=== PATIENT | male | born 1930 | race Hispanic/Latino ===

== ENCOUNTER 2017-06-15 21:01 | Emergency (ER) | payer OTHER, MEDICARE ==
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
[2017-06-15 22:56] VITALS: BP 160/80; BMI 26.6
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
[2017-06-16 00:41] VITALS: PULSE 69; RESP 18; TEMP 98.9; O2SAT 99
--- NOTE | 2017-06-16 08:33 | RAD ---
HISTORY: COMPARISON: 05/03/2017. TECHNIQUE: Chest PA and lateral FINDINGS: LINES AND TUBES: None. LUNG AND PLEURA: The lungs are well inflated and clear. HEART AND MEDIASTINUM: The heart is not enlarged. The hilar and mediastinal contours are within normal limits. SKELETAL STRUCTURES: The bony structures are within normal limits for the patient's age. VISUALIZED UPPER ABDOMEN: Normal. OTHER FINDINGS: None. IMPRESSION: No acute findings.
== END 2017-06-16 00:41 | disposition home or self-care (01) ==
LOC: ED 21:01
DX: S09.90XA Unspecified injury of head, initial encounter (principal); V49.40XA Driver injured in collision with unspecified motor vehicles in traffic accident, initial encounter; I25.10 Atherosclerotic heart disease of native coronary artery without angina pectoris

== ENCOUNTER 2017-12-19 06:11 | Observation (INO) | payer MEDICARE ==
--- NOTE | 2017-12-19 07:10 | CP.PCM.HP ---
History of Present Illness - History of Present Illness History of Present Illness: 87 M failed conservative management elected for a right total knee arthroplasty Hx [place] with stents 2002. No Hx of blood clots, stroke, bleeding disorders NKA Present on Admission - Present on Admission Any Indicators Present on Admission: No History of DVT/PE: No History of Uncontrolled Diabetes: No Review of Systems - Review of Systems All systems: reviewed and no additional remarkable complaints except (R knee pain, swelling) Past Patient History - Past Social History Smoking Status: Never Smoked - CARDIAC Hx Cardiac Disorders: Yes Hx Heart Attack: Yes Hx Hypercholesterolemia: Yes Hx Hypertension: Yes Hx Pacemaker: No - PULMONARY Hx Respiratory Disorders: No - NEUROLOGICAL Hx Paralysis: No - HEENT Hx Cataracts: Yes - RENAL Hx Chronic Kidney Disease: No - ENDOCRINE/METABOLIC Hx Endocrine Disorders: No - HEMATOLOGICAL/ONCOLOGICAL Hx Blood Disorders: No Hx Blood Transfusions: No - INTEGUMENTARY Hx Dermatological Problems: No - MUSCULOSKELETAL/RHEUMATOLOGICAL Hx Musculoskeletal Disorders: No - GASTROINTESTINAL Hx Gastrointestinal Disorders: No - GENITOURINARY/GYNECOLOGICAL Hx Genitourinary Disorders: No Hx Reproductive Disorders: No - PSYCHIATRIC Hx Substance Use: Yes - SURGICAL HISTORY Hx Surgeries: No - ANESTHESIA Hx Anesthesia Reactions: No Hx Malignant Hyperthermia: No Meds Allergies/Adverse Reactions: Allergies Allergy/AdvReac Type Severity Reaction Status Date / Time No Known Allergies Allergy Verified 06/15/17 21:09 Physical Exam - Constitutional Appears: Well, No Acute Distress - Head Exam Head Exam: ATRAUMATIC, NORMAL INSPECTION, NORMOCEPHALIC - Neck Exam Neck exam: Positive for: Full Rom, Normal Inspection - Respiratory Exam Respiratory Exam: NORMAL BREATHING PATTERN - Cardiovascular Exam Cardiovascular Exam: RRR - Expanded Lower Extremities Exam Right Knee exam: effusion, tenderness (Thigh and Calf are soft and nontender. NVI distally) - Neurological Exam Neurological exam: Alert, Oriented x3 - Psychiatric Exam Psychiatric exam: Normal Affect, Normal Mood - Skin Skin Exam: Dry, Intact, Normal Color, Warm Assessment & Plan (1) Osteoarthritis of right knee Assessment and Plan: NPO T&S OR for a right total knee arthroplasty Patient medically optimized for surgery. Risks benefits and alternatives discussed and patient verbalzies understanding and would like to proceed. Status: Acute (2) Hypertension Status: Chronic (3) High cholesterol Status: Chronic
[2017-12-19] MEDS ORDERED: Pantoprazole 40 mg EC Tab PO PRN (07:18)
[2017-12-19] MEDS ORDERED: Bupivacaine 0.5% Inj(30mL) ONE (07:22)
[2017-12-19] MEDS ORDERED: Propofol 10 mg/ml Inj (20 ML) ONE (07:33)
[2017-12-19] MEDS ORDERED: Morphine 1 mg/ml preservative-free Inj(Duramorph) ONE (07:34)
[2017-12-19] MEDS ORDERED: ePHEDrine 50 mg/ml Inj ONE (07:52)
[2017-12-19] MEDS ORDERED: Bupivacaine Liposomal Inj 20 ml ONE (08:38)
[2017-12-19] MEDS ORDERED: Sodium Chloride 0.9% 40 ML IV ONE (08:38)
[2017-12-19] MEDS ORDERED: Vancomycin 1 g Inj ONE (08:38)
[2017-12-19] MEDS ORDERED: Multivitamin With Minerals Tab PO SCH (10:00)
[2017-12-19] MEDS ORDERED: Morphine 2 mg/ml ISec IVP PRN (10:42)
--- NOTE | 2017-12-19 10:44 | PCM.SURG1 ---
Surgeon's Initial Post Op Note - Surgeon's Notes Surgeon: Charo Holden MD Animation Artist: Alcon Florence PA-C Type of Anesthesia: General LMA, Spinal Anesthesia Administered By: Dr. Perez Pre-Operative Diagnosis: right knee osteoarthritis Operative Findings: see full note Post-Operative Diagnosis: same Operation Performed: right total knee arthroplasty Specimen/Specimens Removed: none Estimated Blood Loss: EBL {In ML}: 200 Blood Products Given: N/A Drains Used: Hemovac, Wound Vac Post-Op Condition: Fair Date of Surgery/Procedure: 12/19/17 Time of Surgery/Procedure: 10:42
[2017-12-19] MEDS ORDERED: Sodium Chloride 0.9% 1,000 ML IV SCH (10:45)
--- NOTE | 2017-12-19 10:58 | OP ---
PROCEDURE DATE: 12/19/2017 PREOPERATIVE DIAGNOSIS: Right knee arthritis. POSTOPERATIVE DIAGNOSIS: Right knee arthritis. PROCEDURE: Right total knee arthroplasty. SURGEON: Nathan Holden MD. HYDRAULIC CONTROLS TECHNICIAN: Dr. Holden was assisted by Yris Ibanez, the physician marketing administrative assistant and Grisel Rice, the physician marketing administrative assistant. Both physician assistants were scrubbed and present throughout the entire case and assisted in patient positioning, retraction and wound closure. TYPE OF ANESTHESIA: General. COMPLICATION: None. ESTIMATED BLOOD LOSS: 75 mL. TOURNIQUET TIME: 77 minutes at 300 mmHg. IMPLANT: Biomet Vanguard total knee system. INDICATIONS FOR PROCEDURE: This is an 87-year-old male, who presented with longstanding right knee pain. Clinical examination was consistent with varus malalignment, significant medial joint line tenderness, pain with axial load. Radiographic examination was consistent with a varus knee with advanced degenerative joint disease. After a period of failed nonsurgical management, recommendations were for a right total knee arthroplasty. The risks, benefits and alternatives of the procedure were discussed with the patient and an informed consent was obtained. DESCRIPTION OF PROCEDURE: After the surgical site was signed and verified in the preoperative holding area, the patient was taken to the operating room and placed supine on the operating room table. After administration of general anesthesia, the patient received 2 g of Ancef IV. A Schuler catheter was inserted. Tourniquet was placed above the right thigh. Care was taken to make sure all bony prominences and nerves were well padded and protected and the right lower extremity was prepped and draped in the usual sterile fashion. The tourniquet was inflated and approximately 10 cm longitudinal incision was made. Soft tissues were dissected sharply down to the knee joint. Medial and parapatellar arthrotomy was performed. Medial and lateral menisci, the anterior fat as well as the ACL and PCL were all resected. Once the knee joint was adequately exposed, a step drill was used to drill into the medullary canal of the distal femur. The intramedullary distal femoral cutting guide was inserted. Our distal femoral resection was performed. Next, the femoral component was sized and then the 4-in-1 cut block was pinned into place. Our anterior and posterior cuts were performed. Box cut was performed on the distal femur and attention was directed to the tibia. Extramedullary tibial cutting guide was pinned into place. Satisfied with our alignment, our tibial resection was performed. At this point, our flexion and extension gaps were checked and the patient was noted to have full extension and flexion and stable varus, valgus stress and well balance. At this point, being careful to maintain proper rotation, the medullary canal of the proximal tibia was reamed and punched with the cruciate punch. With the trial tibia, trial femur and trial bearing in place, the knee was taken through a range of motion and was noted to have full extension and flexion and stable. Our attention was directed to the patella. Thickness of the patella was measured and our patella resection was performed. Patellar button was sized and the holes for our patella button were then drilled. The trial patella was placed and the knee was taken through a range of motion. Patella was noted to track normally. At this point, all the trial components were removed and the knee joint was pulse lavaged with antibiotic saline solution. The actual tibial, femoral and patellar components were cemented into place. Once the cement hardened, the knee was inspected for any debris. At this point, the actual bearing was inserted and locked into place with a cross pin. Tourniquet was deflated and any obvious bleeding was cauterized. A medium Hemovac drain was inserted and the arthrotomy was closed using #1 Vicryl suture. The subcutaneous tissue was closed using 0 Vicryl and 2-0 Vicryl suture and the skin was closed using rolan. A AGUILA incisional wound VAC dressing was applied and a knee immobilizer was placed. The patient was awakened from the anesthesia and taken to the recovery room in stable condition. Nathan Holden MD
--- NOTE | 2017-12-19 11:13 | RAD ---
Date of service: 12/19/2017 PROCEDURE: Right Knee Radiographs. HISTORY: s/p R TKA COMPARISON: None. FINDINGS: BONES: Status post total knee replacement. No evidence of osseous fracture. Prosthesis grossly intact. Anterior cutaneous rolan noted. Surgical drain. Subcutaneous gas. JOINTS: As above JOINT EFFUSION: None. OTHER FINDINGS: None. IMPRESSION: Right total knee replacement.
[2017-12-19] MEDS: SACUBITRIL 24mg/VALSARTAN 26mg tab PO SCH ×2 (12:44→17:54)
[2017-12-19] MEDS: Omega-3-Acid Ethyl Esters 1 GM Cap PO SCH (12:44)
[2017-12-19] MEDS: Multivitamin With Minerals Tab PO SCH (12:45)
[2017-12-19] MEDS ORDERED: Pneumococcal 23-Valent Vaccine IM ONE (14:21)
[2017-12-19] MEDS: oxyCODONE 5 mg Immediate Release Tab PO PRN ×2 (16:24→23:06)
[2017-12-19 16:25] LABS: BASO # 0.02 K/mm3 (0.0-2.0); BASO % 0.1 % (0.0-3.0); EOS # 0.1 (0.0-0.7); EOS % 0.7 % (1.5-5.0); GRAN # 11.99 (1.4-6.5); GRAN % 74.4 % (50.0-68.0); HEMOGLOBIN 11.2 g/dL (14.0-18.0); LYMPH # 2.4 (1.2-3.4); LYMPH % 14.9 % (22.0-35.0); MEAN CELL VOLUME 91.6 fl (80.0-105.0); MEAN CORPUSCULAR HEMOGLOBIN 30.5 pg (25.0-35.0); MEAN CORPUSCULAR HGB CONC 33.3 g/dl (31.0-37.0); MEAN PLATELET VOLUME 9.6 fl (7.0-11.0); MONO # 1.6 (0.1-0.6); MONO % 9.9 % (1.0-6.0); RBC 3.67 10^6/uL (3.5-6.1); RED CELL DISTRIBUTION WIDTH 14.9 % (11.5-14.5); WHITE BLOOD COUNT 16.1 10^3/ul (4.5-11.0)
[2017-12-19] MEDS: ceFAZolin 2 GM in Sodium Chloride 0.9% 100 ML IVPB SCH (16:56)
[2017-12-20] MEDS: ceFAZolin 2 GM in Sodium Chloride 0.9% 100 ML IVPB SCH (00:05)
[2017-12-20] MEDS: oxyCODONE 5 mg Immediate Release Tab PO PRN (05:18)
[2017-12-20 07:24] LABS: BASO # 0.03 K/mm3 (0.0-2.0); BASO % 0.2 % (0.0-3.0); EOS # 0.5 (0.0-0.7); EOS % 3.8 % (1.5-5.0); GRAN # 7.25 (1.4-6.5); HEMOGLOBIN 9.7 g/dL (14.0-18.0); LYMPH # 3.1 (1.2-3.4); LYMPH % 24.8 % (22.0-35.0); MEAN CELL VOLUME 92.3 fl (80.0-105.0); MEAN CORPUSCULAR HGB CONC 33.6 g/dl (31.0-37.0); MEAN PLATELET VOLUME 9.8 fl (7.0-11.0); MONO # 1.7 (0.1-0.6); MONO % 13.2 % (1.0-6.0); RBC 3.13 10^6/uL (3.5-6.1); WHITE BLOOD COUNT 12.5 10^3/ul (4.5-11.0)
[2017-12-20] MEDS: HYDROmorphone 0.5 mg/0.5 ml ISec IVP PRN ×3 (07:30→17:55)
[2017-12-20 07:38] LABS: BLOOD UREA NITROGEN 23 mg/dL (7-21); GFR AFRICAN-AMERICAN > 60; GFR NON-AFRICAN AMERICAN > 60
--- NOTE | 2017-12-20 08:17 | CP.PCM.PN ---
Subjective - Date & Time of Evaluation Date of Evaluation: 12/20/17 Time of Evaluation: 07:56 - Subjective Subjective: Patient s/p R TKA. Patient alert and awake, sitting up in bed comfortable. Patient denies any significant pain. Patient has been using incentive spirometer VSS, afebrile WBC 12.5 Hgb 9.7 R knee: knee immobilizer in place. The dressings are dry and intact with hemovac on suction and PICCO in place. Thigh and calf are soft and non-tender. NVI distally POD#1 s/p R TKA Cont DVT prophylaxis Cont PT Cont incentive spirometer Cont pain control Begin discharge planning to subacute rehab, discussed with family yesterday and will try for [place] Dressing changes tomorrow Will monitor Hgb Objective - Vital Signs/Intake and Output Vital Signs (last 24 hours): Temp Pulse Resp BP Pulse Ox 97.7 F 82 20 118/95 H 95 12/20/17 07:00 12/20/17 07:00 12/20/17 07:00 12/20/17 07:00 12/20/17 07:00 Intake and Output: 12/20/17 12/20/17 06:59 18:59 Intake Total 1190 Output Total 1135 Balance 55 - Medications Medications: Current Medications Acetaminophen (Tylenol 325mg Tab) 650 mg PO Q6H [facility] Last Admin: 12/20/17 05:18 Dose: 650 mg Apixaban (Eliquis) 2.5 mg PO BID [facility] PRN Reason: Protocol Last Admin: 12/20/17 07:30 Dose: 2.5 mg Aspirin (Ecotrin) 81 mg PO DAILY [facility] Docusate Sodium (Colace) 100 mg PO BID [facility] Last Admin: 12/19/17 17:54 Dose: 100 mg Hydromorphone HCl (Dilaudid) 0.5 mg IVP Q4H PRN PRN Reason: Pain, severe (8-10) Last Admin: 12/20/17 07:30 Dose: 0.5 mg Metoprolol Tartrate (Lopressor) 50 mg PO DAILY [facility] Last Admin: 12/19/17 12:44 Dose: Not Given Morphine Sulfate (Morphine) 2 mg IVP Q15M PRN PRN Reason: Pain, moderate (4-7) Multivitamins/Minerals (Therapeutic-M Tab) 1 tab PO DAILY [facility] Last Admin: 12/19/17 12:45 Dose: Not Given Fmcim-3-Nyao Ethyl Esters (Lovaza) 1 gm PO DAILY [facility] Last Admin: 12/19/17 12:44 Dose: Not Given Oxycodone HCl (Oxycodone Immediate Release Tab) 5 mg PO Q6H PRN PRN Reason: Pain, moderate (4-7) Last Admin: 12/20/17 05:18 Dose: 5 mg Pantoprazole Sodium (Protonix Ec Tab) 40 mg PO DAILY PRN PRN Reason: GI distress Pregabalin (Lyrica) 50 mg PO BID [facility] Last Admin: 12/19/17 17:54 Dose: 50 mg Sacubitril/Valsartan (Entresto 24 Mg-26 Mg Tablet) 1 each PO BID [facility] Last Admin: 12/19/17 17:54 Dose: Not Given - Labs Labs: 12/20/17 06:45 12/20/17 06:45 Assessment and Plan (1) Osteoarthritis of right knee Status: Acute (2) Hypertension Status: Chronic (3) High cholesterol Status: Chronic
--- NOTE | 2017-12-20 08:51 | CON ---
DATE: 12/20/2017 HISTORY OF PRESENT ILLNESS: Robert Keller who I know very well for many years in the office, who is status post right total knee arthroplasty. He is comfortable in bed. He has a drain in his right knee with some blood. He is comfortable, getting pain medications and in good spirits. He is using the breathing incentive spirometry. He is an 87-year-old white male who I know very well, who has had a history of CT with stents in 2002, blood clots, stroke, bleeding disorders. He has no known drug allergies. He had right knee pain from severe osteoarthritis. SOCIAL HISTORY: He never smoked. Occasional alcohol. No drugs. PAST MEDICAL HISTORY: He has had a heart attack, high cholesterol, hypertension. ALLERGIES: HE HAS NO KNOWN DRUG ALLERGIES. MEDICATIONS: His medication list consists of multivitamin, aspirin, Entresto, fish oil, Lopressor, Nexium. REVIEW OF SYSTEMS: No acute vision or hearing changes. No sore throat. No chest pain. No palpitations. No shortness of breath or cough. No abdominal pain, nausea, vomiting, constipation, diarrhea. He is having severe right knee osteoarthritis pain. He limps when he walks. He needed this procedure done. Now, the knee is in an immobilizer with the drain status post surgery. PHYSICAL EXAMINATION: VITAL SIGNS: He has a 97.7 temp, 82 pulse, 118/95 blood pressure. I have to give him medications for his blood pressure. 20 respiratory rate, 95% O2 sat on room air. He is in pain. HEENT: His head is atraumatic, normocephalic. Throat is moist. NECK: Supple. HEART: Regular rate. LUNGS: Decreased breath sounds, but clear to auscultation. ABDOMEN: Soft, nontender. Positive bowel sounds. EXTREMITIES: The right knee is in an immobilizer. No edema of the lower extremities. NEUROLOGIC: He is alert and oriented x3. LYMPHATICS: Thyroid midline. No palpable appreciable lymphadenopathy. SKIN: For the most part is intact. ASSESSMENT: He has severe osteoarthritis of the right knee, now he has a total knee replacement. He has hypertension and high cholesterol, which has been chronic. I will watch his blood pressure, put him on medications. Pain medications as per orthopedics. He might need subacute rehabilitation, I believe [facility] or [facility] or his choices. I will discuss that with Dr. Holden. Thank you for letting me participate in his care. Ozzy Yao DO
[2017-12-20] MEDS: SACUBITRIL 24mg/VALSARTAN 26mg tab PO SCH ×2 (09:46→17:54)
[2017-12-20] MEDS: Multivitamin With Minerals Tab PO SCH (09:47)
[2017-12-20] MEDS: Omega-3-Acid Ethyl Esters 1 GM Cap PO SCH (09:47)
[2017-12-20] MEDS ORDERED: HYDROmorphone 0.5 mg/0.5 ml ISec IVP PRN (23:11)
[2017-12-20] MEDS ORDERED: oxyCODONE 5 mg Immediate Release Tab PO PRN (23:12)
[2017-12-21 07:36] LABS: BASO # 0.03 K/mm3 (0.0-2.0); BASO % 0.2 % (0.0-3.0); EOS # 0.6 (0.0-0.7); EOS % 4.6 % (1.5-5.0); GRAN # 8.66 (1.4-6.5); GRAN % 66.8 % (50.0-68.0); HEMOGLOBIN 8.8 g/dL (14.0-18.0); LYMPH # 2.1 (1.2-3.4); LYMPH % 16.1 % (22.0-35.0); MEAN CELL VOLUME 90.7 fl (80.0-105.0); MEAN CORPUSCULAR HEMOGLOBIN 30.4 pg (25.0-35.0); MEAN CORPUSCULAR HGB CONC 33.6 g/dl (31.0-37.0); MEAN PLATELET VOLUME 9.7 fl (7.0-11.0); MONO # 1.6 (0.1-0.6); MONO % 12.3 % (1.0-6.0); RBC 2.89 10^6/uL (3.5-6.1); RED CELL DISTRIBUTION WIDTH 14.8 % (11.5-14.5)
[2017-12-21 07:52] LABS: BLOOD UREA NITROGEN 16 mg/dL (7-21); CALCIUM 8.2 mg/dL (8.4-10.5); GFR AFRICAN-AMERICAN > 60; GFR NON-AFRICAN AMERICAN > 60
[2017-12-21 07:56] VITALS: BP 117/58; PULSE 90; RESP 20; TEMP 98.5; O2SAT 97
[2017-12-21] MEDS ORDERED: Magnesium Hydroxide Susp 30 ml UD PO ONE (09:00)
[2017-12-21] MEDS ORDERED: Pantoprazole 40 mg EC Tab PO ONE (09:15)
[2017-12-21] MEDS ORDERED: Multivitamin With Minerals Tab PO SCH (10:00)
[2017-12-21] MEDS ORDERED: Omega-3-Acid Ethyl Esters 1 GM Cap PO SCH (10:00)
--- NOTE | 2017-12-21 10:38 | PN ---
DATE: 12/21/2017 SUBJECTIVE: I saw him resting comfortably in bed. He is in a little bit of pain on his right knee, status post total knee replacement. He is getting pain medications, Dilaudid He is on Colace, Dilaudid, Ecotrin, Eliquis, Entresto, Venofer, Lopressor, Lovaza, Lyrica, milk of magnesia, morphine also. He has got Protonix, Thera-Tabs and acetaminophen. PHYSICAL EXAMINATION: VITAL SIGNS: He has a 98.5 temp, 90 pulse, 117/58 blood pressure, 20 respiratory rate, 97% O2 sat on room air. HEENT: Head is atraumatic, normocephalic. HEART: Regular rate. LUNGS: Decreased breath sounds, but clear. ABDOMEN: Soft, nontender. Positive bowel sounds. EXTREMITIES: Have no edema. The right leg is in a kind of brace, status post surgery. LABORATORY DATA: He has 133 sodium, potassium 4.3, BUN 16, creatinine 0.9, GFR is greater than 60, sugar is 130, calcium is 8.2. He has 13,000 white count, a little high; 8.8 hemoglobin, it dropped a little bit. He is on iron, I think it is from the bleeding from his knee, which is stable; hematocrit is 26.2, platelets are 116. He is supposed to go to [facility] today. They should follow up on his hemoglobin and continue the iron and he was here for total knee replacement, hypertension, and a little bit of anemia. I hope he does well and I will see him after he is out of rehab. Ozyz Yao DO [facility]ITALAllison
[2017-12-22] MEDS ORDERED: Pantoprazole 40 mg EC Tab PO ONE (09:08)
== END 2017-12-21 11:07 ==
LOC: SDS 06:11 → EDSTATUS 07:30 → UNDOADMOB 12:03 → INTOOBSV 12:03 → 5RSO 12:03 → PREINTOOBSV 16:40 → 5RSO 12-20 12:00
PROVIDERS: ADMIT Orthopaedic Surgery; ATTEND Orthopaedic Surgery
DX: M17.11 Unilateral primary osteoarthritis, right knee (principal); I25.10 Atherosclerotic heart disease of native coronary artery without angina pectoris; E78.00 Pure hypercholesterolemia, unspecified; I10 Essential (primary) hypertension; D64.9 Anemia, unspecified; I25.2 Old myocardial infarction; Z95.5 Presence of coronary angioplasty implant and graft
CPT/HCPCS: 27599; 36415; 73560; 80048; 85025; 86850; 86900; 88304; 88311; 97110; 97116; 97162; 97530; C1713; C1776; G0378; G8978; G8979; J0690; J1170; J1756; J2270; J2405; J2704; J2765; J3010; J7030; J7120

== ENCOUNTER 2018-07-17 08:05 | Inpatient (IN) | payer MEDICARE ==
[2018-07-17 08:10] VITALS: BMI 27.9
[2018-07-17 08:59] LABS: BASO # 0.03 K/mm3 (0.0-2.0); BASO % 0.4 % (0.0-3.0); EOS # 0.3 (0.0-0.7); EOS % 4.6 % (1.5-5.0); HEMOGLOBIN 13.1 g/dL (14.0-18.0); LYMPH # 2.1 (1.2-3.4); LYMPH % 30.4 % (22.0-35.0); MEAN CELL VOLUME 91.3 fl (80.0-105.0); MEAN CORPUSCULAR HEMOGLOBIN 30.1 pg (25.0-35.0); MEAN PLATELET VOLUME 10.1 fl (7.0-11.0); MONO # 0.8 (0.1-0.6); MONO % 11.4 % (1.0-6.0); RBC 4.35 10^6/uL (3.5-6.1); RED CELL DISTRIBUTION WIDTH 15.3 % (11.5-14.5); WHITE BLOOD COUNT 6.8 10^3/uL (4.5-11.0)
[2018-07-17 09:02] LABS: VENOUS BLOOD GAS PO2 96 mm/Hg (30-55); VENOUS BLOOD PH 7.36 (7.32-7.43)
[2018-07-17 09:06] LABS: INR 1.04; PARTIAL THROMBOPLASTIN TIME 27.1 Seconds (26.9-38.3); PROTHROMBIN TIME 11.7 SECONDS (9.4-12.5)
[2018-07-17 09:13] LABS: ALB/GLOB RATIO 1.4 (1.1-1.8); ALBUMIN 3.9 g/dL (3.0-4.8); ALT/SGPT 16 U/L (7-56); AST/SGOT 26 U/L (17-59); BLOOD UREA NITROGEN 25 mg/dL (7-21); CALCIUM 9.4 mg/dL (8.4-10.5); GFR NON-AFRICAN AMERICAN > 60
[2018-07-17 09:22] LABS: TROPONIN I < 0.01 ng/mL
--- NOTE | 2018-07-17 09:50 | ED PDOC ---
Arrival/HPI - General Chief Complaint: Chest Pain Time Seen by Provider: 07/17/18 08:07 Historian: Patient - History of Present Illness Narrative History of Present Illness (Text): 07/17/18 09:47 87 y/o M, with past medical history of CAD s/p stent placement and ME, presents to the ED for evaluation of a sudden episode of chest tightness few hours prior to arrival. Patient states onset of symptoms at home while getting ready for cardiac rehab this morning. Patient informs associated shortness of breath on his way to the rehab, which worsened while using the treadmill and was subsequently sent to the ED for medical evaluation. Patient currently states resolved symptoms and denies any other associated somatic complaints. Patient denies any fevers, chills, headache, dizziness, chest pain, shortness of breath, dyspnea on exertion, cough, abdominal pain, nausea, vomiting, diarrhea, back pain, neck pain, or any other complaints. PMD: Dr. Yao Certified Dietary Manager: Dr. Salinas Time/Duration: Prior to Arrival Symptom Onset: Gradual Symptom Course: Resolved Quality: Tightness Activities at Onset: Light Context: Home Past Medical History - Provider Review Nursing Documentation Reviewed: Yes - Infectious Disease Hx of Infectious Diseases: None - Cardiac Hx Cardiac Disorders: Yes (cad, mi 2003 tx at [facility]) Hx Hypertension: Yes - Pulmonary Hx Respiratory Disorders: No - Neurological Other/Comment: b/l mild hand tremors both hands more on left - HEENT Hx HEENT Disorder: Yes Hx Cataracts: Yes (b/l sx) - Renal Hx Renal Disorder: No - Endocrine/Metabolic Hx Endocrine Disorders: No - Hematological/Oncological Hx Cancer: Yes (skin basal cell) Other/Comment: 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 by dr simpson right and left side of nose, left bahai and right cheek, "yrs ago" - Integumentary Hx Dermatological Disorder: Yes Hx Basal Cell Carcinoma: Yes (4 areas removed from face) Other/Comment: right knee immobilizer covering surgical dsg intact - Musculoskeletal/Rheumatological Hx 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") - Gastrointestinal Hx Gastrointestinal Disorders: No - Genitourinary/Gynecological Hx Genitourinary Disorders: No - Psychiatric Hx Psychophysiologic Disorder: No Hx Emotional Abuse: No Hx Physical Abuse: No Hx Substance Use: No - Surgical History Hx Appendectomy: Yes Hx Cardiac Catheterization: Yes Hx Coronary Stent: Yes (x2 ptca) Other/Comment: r knee replacement 12/19/17 due to arthritis, painful walking long distances and stair climbing - Anesthesia Hx Anesthesia Reactions: No Hx Malignant Hyperthermia: No - Suicidal Assessment Feels Threatened In Home Enviroment: No Family/Social History - Physician Review Nursing Documentation Reviewed: Yes Family/Social History: Unknown Family HX Smoking Status: Never Smoked Hx Alcohol Use: Yes (ocassional beer) Hx Substance Use: No Allergies/Home Meds Allergies/Adverse Reactions: Allergies No Known Allergies Allergy (Verified 06/15/17 21:09) Home Medications: Home Meds Medication Instructions Recorded Confirmed RX: Aspirin [Ecotrin] 81 mg PO DAILY 11/22/17 07/17/18 RX: Esomeprazole Magnesium [Nexium] 40 mg PO DAILY PRN 11/22/17 07/17/18 RX: Metoprolol Tartrate [Lopressor] 50 mg PO DAILY 11/22/17 07/17/18 RX: Multivit-Min/FA/Lycopen/Lutein 1 tab PO DAILY 11/22/17 07/17/18 [Centrum Silver Tablet] RX: Lyons-3 Fatty Acids/Fish Oil 1 cap PO DAILY 11/22/17 07/17/18 [Fish Oil 1,000 mg Capsule] RX: Sacubitril/Valsartan [Entresto 1 tab PO BID 11/22/17 07/17/18 24 mg-26 mg] Finasteride [Proscar] 5 mg PO DAILY 07/20/18 07/20/18 Rosuvastatin Calcium [Crestor] 10 mg PO DIN 07/20/18 07/20/18 Review of Systems - Physician Review All systems were reviewed & negative as marked: Yes - Review of Systems Constitutional: absent: Fevers Respiratory: absent: SOB, Cough Cardiovascular: absent: Chest Pain Gastrointestinal: absent: Abdominal Pain, Diarrhea, Nausea, Vomiting Genitourinary Male: absent: Dysuria, Urinary Output Changes Musculoskeletal: absent: Back Pain, Neck Pain Skin: absent: Rash Neurological: absent: Headache, Dizziness Psychiatric: absent: Anxiety Physical Exam Vital Signs Reviewed: Yes Vital Signs Temp Pulse Resp BP Pulse Ox 07/17/18 08:54 83 18 111/58 L 98 07/17/18 08:06 97.8 F 77 18 105/71 97 Temperature: Afebrile Blood Pressure: Normal Pulse: Regular Respiratory Rate: Normal Appearance: Positive for: Well-Appearing, Non-Toxic, Comfortable Pain Distress: None Mental Status: Positive for: Alert and Oriented X 3 - Systems Exam Head: Present: Atraumatic, Normocephalic Pupils: Present: PERRL Extroacular Muscles: Present: EOMI Conjunctiva: Present: Normal Mouth: Present: Moist Mucous Membranes Neck: Present: Normal Range of Motion Respiratory/Chest: Present: Clear to Auscultation, Good Air Exchange. No: Respiratory Distress, Accessory Muscle Use Cardiovascular: Present: Regular Rate and Rhythm, Normal S1, S2. No: Murmurs Abdomen: No: Tenderness, Distention, Peritoneal Signs Back: Present: Normal Inspection Upper Extremity: Present: Normal Inspection. No: Cyanosis, Edema Lower Extremity: Present: Normal Inspection. No: Edema Neurological: Present: GCS=15, CN II-XII Intact, Speech Normal Skin: Present: Warm, Dry, Normal Color. No: Rashes Psychiatric: Present: Alert, Oriented x 3, Normal Insight, Normal Concentration Medical Decision Making ED Course and Treatment: 07/17/18 09:19 Impression: 87 year old male presents to the ED for evaluation of chest tightness. Differential Diagnosis included but are not limited to: --ACS --PNA --PE Plan: -- VBG -- EKG -- Labs -- Chest X-ray -- Urinalysis -- Reassess and disposition Prior Visits: Notes and results from previous visits were reviewed. Progress Notes: 07/17/18 08:09 Labs reviewed with no leukocytosis noted, negative troponin and unremarkable CXR. VBG reveals lactate of 2.8 at this time, but lack of SIRS criteria and therefore NOT a code sepsis. Interrogation of patient reveals Dr. Menard(cardiology) most likely will take patient to the geotechnical laboratory technician for procedure within the [id number] hours. 07/17/18 09:19 Dr. Yao at bedside, who is aware and evaluated patient at bedside, agrees with ED management plan and accepts patient admission under his service. - Lab Interpretations Lab Results: pO2 96 mm/Hg (30-55) H 07/17/18 08:45 VBG pH 7.36 (7.32-7.43) 07/17/18 08:45 VBG pCO2 48.0 (40-60) 07/17/18 08:45 VBG HCO3 27.1 mmol/l (21-28) 07/17/18 08:45 VBG Total CO2 28.6 mmol.L (22-28) H 07/17/18 08:45 VBG O2 Sat (Calc) 98.4 % (40-65) H 07/17/18 08:45 VBG Base Excess 1.0 mmol/L (0.0-2.0) 07/17/18 08:45 VBG Potassium 3.9 mmol/L (3.6-5.2) 07/17/18 08:45 Sodium 139.0 mmol/L (132-148) 07/17/18 08:45 Chloride 106.0 mmol/L (98-107) 07/17/18 08:45 Glucose 114 mg/dl (75-110) H 07/17/18 08:45 Lactate 2.4 mmol/L (0.7-2.1) H 07/17/18 08:45 FiO2 21.0 % 07/17/18 08:45 Crit Value Called To Kait choe 07/17/18 08:45 Crit Value Called By Anne 07/17/18 08:45 Blood Gas Notified Time 901 07/17/18 08:45 PT 11.7 SECONDS (9.4-12.5) 07/17/18 08:20 INR 1.04 07/17/18 08:20 APTT 27.1 Seconds (26.9-38.3) 07/17/18 08:20 Troponin I < 0.01 ng/mL 07/17/18 08:20 Total Bilirubin 0.5 mg/dL (0.2-1.3) 07/17/18 08:20 AST 26 U/L (17-59) 07/17/18 08:20 ALT 16 U/L (7-56) 07/17/18 08:20 Alkaline Phosphatase 54 U/L (38-126) 07/17/18 08:20 Total Protein 6.7 g/dL (5.8-8.3) 07/17/18 08:20 Albumin 3.9 g/dL (3.0-4.8) 07/17/18 08:20 Globulin 2.8 gm/dL 07/17/18 08:20 Albumin/Globulin Ratio 1.4 (1.1-1.8) 07/17/18 08:20 07/17/18 08:20 07/17/18 08:20 Lab Results 07/17/18 08:45: pO2 96 H, VBG pH 7.36, VBG pCO2 48.0, VBG HCO3 27.1, VBG Total CO2 28.6 H, VBG O2 Sat (Calc) 98.4 H, VBG Base Excess 1.0, VBG Potassium 3.9, Glucose 114 H, Lactate 2.4 H, FiO2 21.0, Crit Value Called To Kait choe, Crit Value Called By Anne, Blood Gas Notified Time 901, Sodium 139.0, Chloride 106.0, Venous Blood Potassium 3.9 07/17/18 08:20: Sodium 139, Potassium 4.5, Chloride 106, Carbon Dioxide 27, Anion Gap 11, BUN 25 H, Creatinine 0.9, Est GFR ( Amer) > 60, Est GFR (Non-Af Amer) > 60, Random Glucose 119 H, Calcium 9.4, Magnesium 2.0, Total Bilirubin 0.5, AST 26, ALT 16, Alkaline Phosphatase 54, Troponin I < 0.01, Total Protein 6.7, Albumin 3.9, Globulin 2.8, Albumin/Globulin Ratio 1.4 07/17/18 08:20: PT 11.7, INR 1.04, APTT 27.1 07/17/18 08:20: WBC 6.8, RBC 4.35, Hgb 13.1 L D, Hct 39.7 L, MCV 91.3, MCH 30.1, MCHC 33.0, RDW 15.3 H, Plt Count 153, MPV 10.1, Neut % (Auto) 53.2, Lymph % (Auto) 30.4, Grand % (Auto) 11.4 H, Eos % (Auto) 4.6, Baso % (Auto) 0.4, Lymph # (Auto) 2.1, Grand # (Auto) 0.8 H, Eos # (Auto) 0.3, Baso # (Auto) 0.03, Absolute Neuts (auto) 3.60 I have reviewed the lab results: Yes - RAD Interpretation Narrative RAD Interpretations (Text): 07/17/18 10:18 Chest X-ray reviewed by radiologist, shows: FINDINGS: LUNGS: No active pulmonary disease. PLEURA: No significant pleural effusion identified, no pneumothorax apparent. CARDIOVASCULAR: No aortic atherosclerotic calcification present. Normal cardiac size. No pulmonary vascular congestion. OSSEOUS STRUCTURES: No significant abnormalities. VISUALIZED UPPER ABDOMEN: Normal. OTHER FINDINGS: None. IMPRESSION: No active disease. Radiology Orders: 07/17/18 08:30 CHEST PORTABLE [RAD] Stat Client Technical Specialist: Radiologist - EKG Interpretation EKG Interpretation (Text): 07/17/18 08:09 EKG reviewed, shows NSR @ 77 bpm with PVCs, incomplete RBBB. Interpreted by ED Physician: Yes Type: 12 lead EKG - Medication Orders Current Medication Orders: Docusate Sodium (Colace) 100 mg PO BID [facility] Metoprolol Tartrate (Lopressor) 25 mg PO BID [facility] Nitroglycerin (Nitrostat Sl Tab) 0.4 mg SL Q2H PRN PRN Reason: Pain, moderate (4-7) Discontinued Medications Aspirin (Ecotrin) 81 mg PO DAILY [facility] Last Admin: 07/20/18 09:57 Dose: 81 mg Atorvastatin Calcium (Lipitor) 40 mg PO STAT STA Stop: 07/17/18 09:48 Last Admin: 07/17/18 10:32 Dose: Not Given Non-Admin Reason: Patient Refused Atorvastatin Calcium (Lipitor) 40 mg PO DIN [facility] Last Admin: 07/19/18 17:12 Dose: 40 mg Clopidogrel Bisulfate (Plavix) 75 mg PO DAILY [facility] Last Admin: 07/20/18 09:58 Dose: 75 mg Docusate Sodium (Colace) 100 mg PO BID [facility] Last Admin: 07/20/18 09:57 Dose: 100 mg Influenza Virus Vaccine (Flucelvax Quad [id number] Syr) 60 mcg IM .ONCE ONE Stop: 07/17/18 23:53 Metoprolol Succinate (Toprol Xl) 50 mg PO BRK [facility] Last Admin: 07/17/18 10:33 Dose: 50 mg [facility] Pulse and Blood Pressure Document 07/17/18 10:33 EAR (Rec: 07/17/18 10:33 EAR [id number]) Pulse Pulse Rate (60-90 beats/min) 85 Metoprolol Tartrate (Lopressor) 25 mg PO BID [facility] Last Admin: 07/17/18 18:02 Dose: Not Given Non-Admin Reason: BP Parameters Not Met MAR Pulse and Blood Pressure Document 07/17/18 18:02 SS (Rec: 07/17/18 18:02 SS [facility] [id number]) Pulse Pulse Rate (60-90 beats/min) 58 Blood Pressure Blood Pressure (100/60-150/90 mm Hg) 100/60 Metoprolol Tartrate (Lopressor) 25 mg PO DAILY [facility] Last Admin: 07/20/18 09:57 Dose: 25 mg MAR Pulse and Blood Pressure Document 07/20/18 09:57 LMN (Rec: 07/20/18 09:58 LMN [facility] [place]-[id number]) Pulse Pulse Rate (60-90 beats/min) 90 Blood Pressure Blood Pressure (100/60-150/90 mm Hg) 115/78 Nitroglycerin (Nitrostat Sl Tab) 0.4 mg SL Q2H PRN PRN Reason: Pain, moderate (4-7) Last Admin: 07/18/18 06:04 Dose: 0.4 mg Pneumococcal Polyvalent Vaccine (Pneumovax 23 Vaccine) 0.5 ml IM .ONCE ONE Stop: 07/17/18 23:53 Sacubitril/Valsartan (Entresto 24 Mg-26 Mg Tablet) 1 each PO BID [facility] Last Admin: 07/20/18 09:57 Dose: 1 each Simethicone (Mylicon Chew Tab) 80 mg PO ONCE ONE Stop: 07/18/18 17:30 Last Admin: 07/18/18 18:08 Dose: 80 mg - Marthaibe Statement The provider has reviewed the documentation as recorded by the Darby Ortiz. All medical record entries made by the Darby were at my direction and personally dictated by me. I have reviewed the chart and agree that the record accurately reflects my personal performance of the history, physical exam, medical decision making, and the department course for this patient. I have also personally directed, reviewed, and agree with the discharge instructions and disposition. Disposition/Present on Arrival - Present on Arrival Any Indicators Present on Arrival: Yes History of DVT/PE: No History of Uncontrolled Diabetes: No Urinary Catheter: Yes (insertec in or) History of Decub. Ulcer: No History Surgical Site Infection Following: None - Disposition Have Diagnosis and Disposition been Completed?: Yes Diagnosis: Chest pain Disposition: HOSPITALIZED Disposition Time: 09:00 Patient Plan: Admission Condition: GUARDED
--- NOTE | 2018-07-17 09:56 | RAD ---
Date of service: 07/17/2018 HISTORY: chest pain COMPARISON: 06/15/2017 FINDINGS: LUNGS: No active pulmonary disease. PLEURA: No significant pleural effusion identified, no pneumothorax apparent. CARDIOVASCULAR: No aortic atherosclerotic calcification present. Normal cardiac size. No pulmonary vascular congestion. OSSEOUS STRUCTURES: No significant abnormalities. VISUALIZED UPPER ABDOMEN: Normal. OTHER FINDINGS: None. IMPRESSION: No active disease.
[2018-07-17] MEDS ORDERED: Metoprolol Succinate 50 mg XL Tab PO SCH (10:00)
[2018-07-17] MEDS: SACUBITRIL 24mg/VALSARTAN 26mg tab PO SCH ×2 (10:32→18:28)
[2018-07-17 12:22] LABS: URINE BILIRUBIN NEGATIVE (NEGATIVE); URINE BLOOD NEGATIVE (NEGATIVE); URINE GLUCOSE (UA) NEGATIVE (NEGATIVE); URINE LEUKOCYTE ESTERASE NEGATIVE Leu/uL (NEGATIVE); URINE PROTEIN NEGATIVE mg/dL (<30 mg/dL); URINE UROBILINOGEN 0.2 E.U./dL (<1 E.U./dL)
[2018-07-17 12:25] LABS: URINE APPEARANCE CLEAR (CLEAR); URINE COLOR YELLOW (YELLOW)
[2018-07-17 13:20] LABS: VENOUS BLOOD GAS BASE EXCESS 1.7 mmol/L (0.0-2.0); VENOUS BLOOD GAS PO2 153 mm/Hg (30-55); VENOUS BLOOD PH 7.41 (7.32-7.43)
--- NOTE | 2018-07-17 15:27 | CON ---
DATE OF CONSULTATION: 07/17/2018 REQUESTING PHYSICIAN: Dr. Ozzy Yao. REASON FOR CONSULTATION: Chest pain. HISTORY: This is an 87-year-old man well known to me with a history of coronary artery disease, status post prior myocardial infarction and PCI 15 years ago, who was exercising in cardiac rehabilitation this morning and had retrosternal chest discomfort radiating to his neck. He states he also had an episode earlier in the morning when getting into the shower. In the emergency room he continued to have some residual pain. An electrocardiogram showed no acute changes. He was given some sublingual nitroglycerin with improvement in his symptoms. His last stress test was 2 years ago, at which time he was found to have a fixed inferior anterolateral defect with no evidence of ischemia and ejection fraction of 37%. He has been managed conservatively since that time. PAST MEDICAL HISTORY: His past history is notable for the problems mentioned above. He does have a history of a prior left knee replacement. He has had gastroesophageal reflux disease and benign prostatic hypertrophy. History of colon cancer with successful hemicolectomy. MEDICATIONS: His current medications include aspirin 81 mg daily, Entresto 24/26 mg b.i.d., metoprolol ER 50 mg daily, Nexium p.r.n., Crestor 20 mg daily, fish oil supplements, and finasteride. ALLERGIES: NONE. SOCIAL HISTORY: He does not smoke or drink. He is and lives alone. He is fairly active. FAMILY HISTORY: Both parents are from age-related illness. REVIEW OF SYSTEMS: Ten-point review of systems is otherwise unremarkable. PHYSICAL EXAMINATION: GENERAL: He is a healthy-appearing, very elderly man. VITAL SIGNS: His blood pressure is 110/60 with a pulse of 76, respirations are 16. He is afebrile. HEENT: Normocephalic, atraumatic. NECK: Supple. No JVD noted. CHEST: A few scattered rhonchi heard. HEART: PMI in normal position. Systolic murmur is present at the lower left sternal border. ABDOMEN: Soft, nontender with normoactive bowel sounds. EXTREMITIES: No edema. SKIN: Warm and dry. PSYCHIATRIC: Normal mood and affect. NEUROLOGICAL: Alert and oriented x3. No gross motor or sensory deficits noted. DIAGNOSTIC DATA: Potassium 4.5, BUN and creatinine are 25 and 0.9, glucose is 119. White count of 6.8, hemoglobin and hematocrit are 13.1 and 39.7 with a platelet count of 153,000. PT/PTT normal. Initial troponin is negative. Electrocardiogram reveals sinus rhythm with a leftward axis and nonspecific ST-T abnormalities. Chest x-ray reveals normal cardiac silhouette with clear lung ochoa. IMPRESSION: 1. Recent exertional chest discomfort with known coronary artery disease, status post remote myocardial fraction and PCI. 2. History of hypertension and hyperlipidemia. 3. Status post colon cancer resection. 4. Rest of problems as noted. RECOMMENDATIONS: Admission to a telemetry bed appears appropriate at this time. Followup cardiac enzymes will be planned. Sublingual nitroglycerin will be given for any recurrent chest pain. Further plans will be made based upon his clinical course and results of the above findings. Options would include intensification of medical therapy versus stress testing versus a repeat cardiac catheterization. All the above will be discussed in detail with the patient and decision made from there. Thank you for this consultation. We will be happy to follow along as needed. Marciano Menard MD
--- NOTE | 2018-07-17 19:36 | HP ---
DATE OF EXAM: 07/17/2018 HISTORY OF PRESENT ILLNESS: He is in the emergency room at [facility]. He comes in with a history of having chest pain, angina pain, and pressure on his chest this morning before he took a shower. He did not feel well. He has had this feeling before way back when greater than 10 years ago. He had myocardial infarction with stents in 2002 and he comes to the emergency room at this time. He is feeling a bit better. I gave him some nitroglycerin, which I think made a big difference for him. PAST MEDICAL HISTORY: He has a past medical history of an [facility] and stent in 2002. He has high cholesterol, hypertension, and cataracts. PAST SURGICAL HISTORY: He has had surgery with Dr. Holden in 11/2017. He had acute osteoarthritis of the right knee. He had a total knee replacement of the right knee and cataract surgery. ALLERGIES: HE HAS NO KNOWN DRUG ALLERGIES. MEDICATIONS: He is on valsartan, Entresto for blood pressure, Lyrica, omega-3 fatty acids, Centrum Silver, Lopressor, Nexium, Colace, Ecotrin, Eliquis, and Tylenol. LABORATORY DATA: He has a 6.8 white count, 13.1 hemoglobin, 39.7 hematocrit with 153 platelets. INR is 1.04. His lactate is 2.4, little high could be stress related. Sodium 139, potassium 4.5, BUN 25, creatinine 0.9, GFR is greater than 60, sugar is 119, calcium is 9.4, magnesium is 2, and total bili is 0.5. AST is 26, ALT is 16, and alk phos is 54. Total protein 6.7, albumin is 3.9 and his troponin I is pending. REVIEW OF SYSTEMS: At this time, there is no vision or hearing changes. No sore throat. No neck pain. He did have chest pain, chest pressure, chest discomfort, angina almost into his throat, down his left arm a little bit, went away with nitroglycerin. Little shortness of breath, but no shortness of breath now. No coughing. No abdominal pain. He did have a little nauseousness and indigestion, better now. No constipation or diarrhea. Extremities, no swelling. He can move all 4 extremities well. No apparent skin issues. Not anxious. PHYSICAL EXAMINATION: VITAL SIGNS: 97.8 temperature, 77 pulse, 105/71 blood pressure, 18 respiratory rate, and 97% O2 sat on room air. HEENT: Head is atraumatic and normocephalic. Extraocular muscles are intact. Throat is moist. NECK: Supple. HEART: Regular rate. LUNGS: Decreased breath sounds, clear to auscultation. ABDOMEN: Soft and nontender. Positive bowel sounds. EXTREMITIES: No edema. He can move all four extremities. NEUROLOGIC: GCS is 15. Alert and oriented x3. SKIN: Warm and dry. No apparent ulcers appreciated. LYMPHS: Thyroid midline. No palpable appreciable lymphadenopathy. ASSESSMENT AND PLAN: He is here for chest pain, rule out angina or coronary artery disease. We will have a consult with Dr. Menard, his school examiner. He might need another cardiac catheterization, possible stent, awaiting for the troponins to come back and minimum he will be 24 hours in observation. He might need to have a cath and stent as per Cardiology. Waiting for labs to come back. Robert Hodgeington is here with chest pain, angina type symptoms. Ozzy Yao DO
--- NOTE | 2018-07-17 22:46 | CARD ---
APPROVED REPORT Date of service: 07/17/2018 EKG Measurement Heart [id number] <Conclusion> Sinus rhythm with occasional premature ventricular complexes Incomplete right bundle branch block Borderline ECG
[2018-07-17] MEDS ORDERED: Influenza Vaccine 60 mcg/0.5 mL SYR (4YR UP) IM ONE (23:52)
[2018-07-17] MEDS ORDERED: Pneumococcal 23-Valent Vaccine IM ONE (23:52)
[2018-07-18 06:30] LABS: HEMOGLOBIN 12.9 g/dL (14.0-18.0); MEAN CELL VOLUME 92.4 fl (80.0-105.0); MEAN CORPUSCULAR HEMOGLOBIN 29.9 pg (25.0-35.0); MEAN CORPUSCULAR HGB CONC 32.3 g/dl (31.0-37.0); MEAN PLATELET VOLUME 9.9 fl (7.0-11.0); RBC 4.32 10^6/uL (3.5-6.1); RED CELL DISTRIBUTION WIDTH 15.5 % (11.5-14.5); WHITE BLOOD COUNT 7.7 10^3/uL (4.5-11.0)
[2018-07-18 06:39] LABS: ALB/GLOB RATIO 1.4 (1.1-1.8); ALBUMIN 3.6 g/dL (3.0-4.8); ALT/SGPT 22 U/L (7-56); AST/SGOT 23 U/L (17-59); BLOOD UREA NITROGEN 24 mg/dL (7-21); GFR NON-AFRICAN AMERICAN > 60; TROPONIN I < 0.01 ng/mL
[2018-07-18] MEDS ORDERED: Iodixanol 320 MG/ML 100 ML BOTTLE IV ONE (07:59)
[2018-07-18] MEDS ORDERED: Iohexol 350mgl/ml 50 ML ONE (07:59)
[2018-07-18] MEDS ORDERED: Iodixanol 320 MG/ML 200 ML BOTTLE IV ONE (07:59)
[2018-07-18] MEDS ORDERED: Lidocaine 2% Inj (20ml) ONE (07:59)
[2018-07-18] MEDS ORDERED: Midazolam 2 MG/2 ML VIAL ONE (08:09)
--- NOTE | 2018-07-18 08:24 | PCM.RRT ---
RESIDENTIAL LEASING AGENT Nurse Assessment - Situation Date: 07/18/18 Time RESIDENTIAL LEASING AGENT was called: 07:50 RESIDENTIAL LEASING AGENT Location:: [address] [place] [address] Room Number: [id number] RESIDENTIAL LEASING AGENT Reason for Call: Chest Pain RESIDENTIAL LEASING AGENT Called By: RN - Respiratory Oxygen Delivery Method: Nasal Cannula @L/min Oxygen Flow Rate: 2 - Medication Medications Administered During RESIDENTIAL LEASING AGENT: Lopressor, Nitro gtt, heparin bolus - Diagnostic Test Ordered EKG: Yes - Recommendations 5) RESIDENTIAL LEASING AGENT Level of Care Recommendations: transfer to industrial laborer Notifications: Attending Physician, Consultations I.Reason for RESIDENTIAL LEASING AGENT - A) Acute Change in Patient: (Select all that apply): Chest Pain Subjective: Mr. Keller is an 87 year old male with significant past medical history including previous MS, previous cardiac stents who had been having a few episodes of intermittent chest pain and limited runs of vtach earlier in the morning. Patient was given nitro tab during initial chest pain event early this AM, EKG which showed normal sinus rhythm and troponin which was negative. After being given the Nitro tabs the patient's blood pressure was noted to be low to normal with SBP 100s and DBP 70s. Patient was evaluated at bedside by house doc ~7:15 am. Patient denied chest pain, nausea, palpitations, sweating, shortness of breath at that time. His blood pressure was rechecked multiple times with pressure readings of 105-125 SBP and DBP of 70s. At that time patient was HDS and instructed to alert staff for any acute changes in his symptoms with emphasis on chest pain. After the evaluation the patient was noted to have chest pain and a rapid response was called. EKG was done and showed ST elevations and signs of Vtach. Dr. Salinas with cardiology was at bedside and instructed staff to call for a CODE HEART. Patient was given Lopressor IV, Nitro gtt and heparin bolus. Patient was continued on oxygen and transferred to industrial laborer for heart cathertization under direct supervision of the house doctor. Patient care was transferred to Dr. Salinas upon arrival to industrial laborer. Primary medical doctor, Dr. Yao was notified via telephone. - Neurological Status (Select all that apply): Alert, Responsive, Oriented, Verbal, Follows Commands - Constitutional Appears: No Acute Distress - Head Head Exam: ATRAUMATIC, NORMOCEPHALIC - Eyes Eye Exam: EOMI, PERRL - Respiratory Exam Respiratory Exam: Clear to Ausculation Bilateral, NORMAL BREATHING PATTERN - Cardiovascular Exam Cardiovascular Exam: REGULAR RHYTHM, +S1, +S2 - GI/Abdominal Exam GI & Abdominal Exam: Soft, Normal Bowel Sounds. absent: Rigid, Tenderness - Neurological Exam Neurological Exam: Alert, Awake, Oriented x3 Additional exam: motor and sensory grossly intact - Extremities Exam Extremities Exam: Full ROM. absent: Pedal Edema Plan - Assessment of Findings&Treatment Plan Acute chest pain with EKG showing ST elevations - EKG showed ventricular tachycardia with ST elevations in lateral leads - Previous EKG reviewed and appreciated - Cardiology with Dr. Salinas placed orders for lopressor IV, nitro gtt, heparin bolus and transfer to Vascular industrial laborer. - Patient to be transferred to CCU post cath - PMD notified
[2018-07-18] MEDS: SACUBITRIL 24mg/VALSARTAN 26mg tab PO SCH ×2 (09:00→18:08)
--- NOTE | 2018-07-18 09:47 | PN ---
DATE: 07/18/2018 SUBJECTIVE: The patient is seen lying in bed on telemetry. 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 He has also exhibited evidence of the heart block and runs of ventricular tachycardia. He is currently having chest pain and has been given sublingual nitroglycerin, IV nitroglycerin, IV metoprolol, and IV heparin. PHYSICAL EXAMINATION GENERAL: He is a very elderly man who appears fairly comfortable despite his symptoms. VITAL SIGNS: His blood pressure is 110/70 with pulse of 66, sinus, PVCs, respirations of 14. He is afebrile. HEENT: No JVD. CHEST: Few scattered rhonchi. HEART: No pathologic murmur heard. ABDOMEN: Soft and nontender with bowel sounds. EXTREMITIES: No edema. DIAGNOSTIC DATA: Two sets of cardiac enzymes were negative. Potassium 4.3, BUN and creatinine are 24 and 0.9. White count 7.7, hemoglobin and hematocrit 12.9 and 39.9 with platelet count of 160,000. Electrocardiogram reveals ventricular tachycardia with ST elevations in the anterolateral leads. MEDICATIONS: His current medications include aspirin, metoprolol, Crestor, Entresto. IMPRESSION: 1. Acute anterolateral wall myocardial fraction secondary to left anterior descending disease. 2. Left ventricular tachycardia and heart block secondary to infarct pattern. 3. Known coronary artery disease status post remote percutaneous coronary intervention. RECOMMENDATIONS: The patient will report emergently to cardiac catheterization lab to undergo coronary angiography and possible PCI should suitable anatomy be found. Beta-audra will be withheld in the interim given his episodes of heart block, however, this may have been ischemic in nature. His prognosis remains guarded and further recommendation made based upon the results the above findings. Marciano Menard MD MTDD
--- NOTE | 2018-07-18 09:58 | PN ---
DATE: 07/18/2018 SUBJECTIVE: I saw him this morning in the lab support technician with Dr. Menard and apparently, this morning he had rapid AFib some chest pain was taken to the lab support technician and he had a stent placed. MEDICATIONS: He is on Colace, Ecotrin, Entresto, Lipitor, Lopressor, Nitrostat, Plavix. OBJECTIVE: VITAL SIGNS: He has a 98.6 temperature, pulse was as high as 210, it is down to 70s, 112/69 blood pressure, 18 respiratory rate, 99% O2 sat on nasal cannula. HEENT: Head is atraumatic, normocephalic. HEART: Regular rate. LUNGS: Decreased breath sounds. ABDOMEN: Soft. EXTREMITIES: No edema. LABORATORY DATA: He has a 7.7 white count, 12.9 hemoglobin, 39.9 hematocrit with a 160 platelets. Lactate is down to 1.7. He has 136 sodium, potassium 4.3, BUN is 24, creatinine 0.94, GFR is greater than 60, sugar is 96, calcium is 9, total bili is 0.4, AST is 23, ALT is 22, alk phos is 55, his troponins are less than 0.01 which is good. Total protein 6.1. He had some rapid AFib. He has CAD and stent placement. He had chest pain could be watched overnight again. Continue as per Cardiology. Check his labs tomorrow. Ozzy Yao DO MTD[facility]
--- NOTE | 2018-07-18 11:06 | CP.PCM.CON ---
<Kashmir Forrest - Last Filed: 07/18/18 10:43> History of Present Illness - History of Present Illness History of Present Illness: ICU Consult Note for Dr. Leonard Reason for Consultation: s/p cardiac catherization Patient is an 87 yo M with PMH of CAD s/p stent, HTN, HLD, colon CA, and mariel racts was admitted [place] [facility] [place]. This morning patient was found to be in ventricular tachycardia and was emergently taken for cardiac catherization with MENA placed in the LAD. Patient is transferred to the ICU for post-cardiac catherization monitoring. Currently, patient is comfortable, lying supine. Patient states that CP has ceased and is no longer short of breath. Patient also denies pain at cath site in right groin, n/v/d, abdominal pain, fever, chills, COATS, and dizziness. PMH: CAD s/p stent, HTN, HLD, colon CA, and cataracts Surg: Right total knee replacement, cataract surgery, colectomy, tonsillectomy, appendectomy All: NKDA SH: Former 10 pack year smoker, quit 40 years ago; Social EtOH; denied illicit drug use FHx: CAD, HTN, lung CA Review of Systems - Review of Systems All systems: reviewed and no additional remarkable complaints except (12 point ROS reviewed and is negative other than what is stated in HPI.) Past Patient History - Infectious Disease Hx of Infectious Diseases: None - Past Social History Smoking Status: Never Smoked - CARDIAC Hx Cardiac Disorders: Yes (cad, mi 2003 tx at [facility]) Hx Angina: Yes Hx Hypercholesterolemia: Yes Hx Hypertension: Yes - PULMONARY Hx Respiratory Disorders: No - NEUROLOGICAL Hx Neurological Disorder: Yes Other/Comment: b/l mild hand tremors both hands more on left - HEENT Hx HEENT Problems: Yes Hx Cataracts: Yes (b/l sx) - RENAL Hx Chronic Kidney Disease: No - ENDOCRINE/METABOLIC Hx Endocrine Disorders: No - HEMATOLOGICAL/ONCOLOGICAL Hx Cancer: Yes (skin basal cell) Other/Comment: 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 by dr simpson right and left side of nose, left mandaeism and right cheek, "yrs ago", colorectal ca had colon resection "yrs ago" and chemo - INTEGUMENTARY Hx Dermatological Problems: Yes 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) Other/Comment: healed surgical scar right knee total knee replacement due to osteoarthritis 11/2017, skin discolorations/dry skin legs/feet - MUSCULOSKELETAL/RHEUMATOLOGICAL Hx Falls: No - GASTROINTESTINAL Hx Gastrointestinal Disorders: No - GENITOURINARY/GYNECOLOGICAL Hx Genitourinary Disorders: No - PSYCHIATRIC Hx Substance Use: No - SURGICAL HISTORY Hx Surgeries: Yes Hx Appendectomy: Yes Hx Cardiac Catheterization: Yes Hx Coronary Stent: Yes (x2 ptca) Other/Comment: r knee replacement 12/19/17 due to arthritis, painful walking long distances and stair climbing - ANESTHESIA Hx Anesthesia Reactions: No Hx Malignant Hyperthermia: No Meds Allergies/Adverse Reactions: Allergies Allergy/AdvReac Type Severity Reaction Status Date / Time No Known Allergies Allergy Verified 06/15/17 21:09 - Medications Medications: Current Medications Aspirin (Ecotrin) 81 mg PO DAILY [facility] Last Admin: 07/18/18 10:32 Dose: Not Given Atorvastatin Calcium (Lipitor) 40 mg PO DIN [facility] Clopidogrel Bisulfate (Plavix) 75 mg PO DAILY [facility] Docusate Sodium (Colace) 100 mg PO BID [facility] Last Admin: 07/18/18 10:31 Dose: Not Given Metoprolol Tartrate (Lopressor) 25 mg PO BID [facility] Last Admin: 07/17/18 18:02 Dose: Not Given Nitroglycerin (Nitrostat Sl Tab) 0.4 mg SL Q2H PRN PRN Reason: Pain, moderate (4-7) Last Admin: 07/18/18 06:04 Dose: 0.4 mg Sacubitril/Valsartan (Entresto 24 Mg-26 Mg Tablet) 1 each PO BID [facility] Last Admin: 07/17/18 18:28 Dose: 1 each Physical Exam - Constitutional Appears: No Acute Distress - Head Exam Head Exam: NORMAL INSPECTION - Eye Exam Eye Exam: Normal appearance Pupil Exam: NORMAL ACCOMODATION - ENT Exam ENT Exam: Normal Exam - Neck Exam Neck exam: Positive for: Normal Inspection - Respiratory Exam Respiratory Exam: Clear to Auscultation Bilateral. absent: Rales, Rhonchi, Wheezes - Cardiovascular Exam Cardiovascular Exam: RRR, +S1, +S2. absent: Diastolic murmur, Gallop, Rubs, Systolic Murmur - GI/Abdominal Exam GI & Abdominal Exam: Soft. absent: Distended, Hernia, Rebound, Tenderness - Extremities Exam Additional comments: cath site, right groin: c/d/i, no signs of bleeding, hematoma, discharge, or erythema - Back Exam Back exam: NORMAL INSPECTION - Neurological Exam Neurological exam: Alert, Oriented x3 - Psychiatric Exam Psychiatric exam: Normal Mood - Skin Skin Exam: Normal Color, Warm Results - Vital Signs Recent Vital Signs: Last Vital Signs Temp 98.6 F 07/18/18 06:00 Pulse 63 07/18/18 09:08 Resp 16 07/18/18 09:08 BP 109/65 07/18/18 09:08 Pulse Ox 99 07/18/18 07:47 - Labs Result Diagrams: 07/18/18 06:00 07/18/18 06:00 Labs: Laboratory Results - last 24 hr 07/17/18 07/17/18 07/17/18 12:00 13:10 14:05 WBC RBC Hgb Hct MCV MCH MCHC RDW Plt Count MPV pO2 153 H VBG pH 7.41 VBG pCO2 42.0 VBG HCO3 26.6 VBG Total CO2 27.9 VBG O2 Sat (Calc) 99.5 H VBG Base Excess 1.7 VBG Potassium 4.2 Sodium 139.0 Chloride 106.0 Glucose 116 H Lactate 1.7 FiO2 21.0 Potassium Carbon Dioxide Anion Gap BUN Creatinine Est GFR ( Amer) Est GFR (Non-Af Amer) Random Glucose Calcium Total Bilirubin AST ALT Alkaline Phosphatase Lactate Dehydrogenase Total Creatine Kinase Troponin I 0.02 D Total Protein Albumin Globulin Albumin/Globulin Ratio Venous Blood Potassium 4.2 Urine Color Yellow Urine Appearance Clear Urine pH 6.0 Ur Specific Wilsons 1.010 Urine Protein Negative Urine Glucose (UA) Negative Urine Ketones Negative Urine Blood Negative Urine Nitrate Negative Urine Bilirubin Negative Urine Urobilinogen 0.2 Ur Leukocyte Esterase Negative 07/17/18 07/18/18 07/18/18 23:20 06:00 06:00 WBC 7.7 RBC 4.32 Hgb 12.9 L Hct 39.9 L MCV 92.4 MCH 29.9 MCHC 32.3 RDW 15.5 H Plt Count 160 MPV 9.9 pO2 VBG pH VBG pCO2 VBG HCO3 VBG Total CO2 VBG O2 Sat (Calc) VBG Base Excess VBG Potassium Sodium 136 Chloride 104 Glucose Lactate FiO2 Potassium 4.3 Carbon Dioxide 28 Anion Gap 9 L BUN 24 H Creatinine 0.9 Est GFR ( Amer) > 60 Est GFR (Non-Af Amer) > 60 Random Glucose 96 Calcium 9.0 Total Bilirubin 0.4 AST 23 ALT 22 Alkaline Phosphatase 55 Lactate Dehydrogenase 357 Total Creatine Kinase 31 L Troponin I < 0.01 D < 0.01 Total Protein 6.1 Albumin 3.6 Globulin 2.5 Albumin/Globulin Ratio 1.4 Venous Blood Potassium Urine Color Urine Appearance Urine pH Ur Specific Wilsons Urine Protein Urine Glucose (UA) Urine Ketones Urine Blood Urine Nitrate Urine Bilirubin Urine Urobilinogen Ur Leukocyte Esterase Assessment & Plan - Assessment and Plan (Free Text) Assessment: 87 yo M with PMH of CAD s/p stent, HTN, HLD, colon CA and cataracts is admitted to ICU for post-cardiac catherization with MENA placed in LAD. 1. V-tach s/p cardiac cath with MENA in LAD 2. CAD 3. HTN 4. HLD Plan: - DAPT - BB - Statin - Entresto - EKG in AM - Echo - Monitor vitals and cath site for bleeding/hematoma - Further management per Cardio Patient seen and discussed with Dr. Leonard. Oliver Forrest DO PGY2 <Matty Leonard - Last Filed: 07/18/18 11:58> Meds - Medications Medications: Current Medications Aspirin (Ecotrin) 81 mg PO DAILY [facility] Last Admin: 07/18/18 10:32 Dose: Not Given Atorvastatin Calcium (Lipitor) 40 mg PO DIN [facility] Clopidogrel Bisulfate (Plavix) 75 mg PO DAILY [facility] Docusate Sodium (Colace) 100 mg PO BID [facility] Last Admin: 07/18/18 10:31 Dose: Not Given Metoprolol Tartrate (Lopressor) 25 mg PO BID [facility] Last Admin: 07/17/18 18:02 Dose: Not Given Nitroglycerin (Nitrostat Sl Tab) 0.4 mg SL Q2H PRN PRN Reason: Pain, moderate (4-7) Last Admin: 07/18/18 06:04 Dose: 0.4 mg Sacubitril/Valsartan (Entresto 24 Mg-26 Mg Tablet) 1 each PO BID [facility] Last Admin: 07/17/18 18:28 Dose: 1 each Results - Vital Signs Recent Vital Signs: Last Vital Signs Temp 98.6 F 07/18/18 06:00 Pulse 61 07/18/18 10:23 Resp 20 07/18/18 10:23 BP 118/81 07/18/18 10:23 Pulse Ox 99 07/18/18 07:47 - Labs Result Diagrams: 07/18/18 06:00 07/18/18 06:00 Labs: Laboratory Results - last 24 hr 07/17/18 07/17/18 07/17/18 12:00 13:10 14:05 WBC RBC Hgb Hct MCV MCH MCHC RDW Plt Count MPV pO2 153 H VBG pH 7.41 VBG pCO2 42.0 VBG HCO3 26.6 VBG Total CO2 27.9 VBG O2 Sat (Calc) 99.5 H VBG Base Excess 1.7 VBG Potassium 4.2 Sodium 139.0 Chloride 106.0 Glucose 116 H Lactate 1.7 FiO2 21.0 Potassium Carbon Dioxide Anion Gap BUN Creatinine Est GFR ( Amer) Est GFR (Non-Af Amer) Random Glucose Calcium Total Bilirubin AST ALT Alkaline Phosphatase Lactate Dehydrogenase Total Creatine Kinase Troponin I 0.02 D Total Protein Albumin Globulin Albumin/Globulin Ratio Venous Blood Potassium 4.2 Urine Color Yellow Urine Appearance Clear Urine pH 6.0 Ur Specific W[place]ons 1.010 Urine Protein Negative Urine Glucose (UA) Negative Urine Ketones Negative Urine Blood Negative Urine Nitrate Negative Urine Bilirubin Negative Urine Urobilinogen 0.2 Ur Leukocyte Esterase Negative 07/17/18 07/18/18 07/18/18 23:20 06:00 06:00 WBC 7.7 RBC 4.32 Hgb 12.9 L Hct 39.9 L MCV 92.4 MCH 29.9 MCHC 32.3 RDW 15.5 H Plt Count 160 MPV 9.9 pO2 VBG pH VBG pCO2 VBG HCO3 VBG Total CO2 VBG O2 Sat (Calc) VBG Base Excess VBG Potassium Sodium 136 Chloride 104 Glucose Lactate FiO2 Potassium 4.3 Carbon Dioxide 28 Anion Gap 9 L BUN 24 H Creatinine 0.9 Est GFR ( Amer) > 60 Est GFR (Non-Af Amer) > 60 Random Glucose 96 Calcium 9.0 Total Bilirubin 0.4 AST 23 ALT 22 Alkaline Phosphatase 55 Lactate Dehydrogenase 357 Total Creatine Kinase 31 L Troponin I < 0.01 D < 0.01 Total Protein 6.1 Albumin 3.6 Globulin 2.5 Albumin/Globulin Ratio 1.4 Venous Blood Potassium Urine Color Urine Appearance Urine pH Ur Specific Wilsons Urine Protein Urine Glucose (UA) Urine Ketones Urine Blood Urine Nitrate Urine Bilirubin Urine Urobilinogen Ur Leukocyte Esterase Assessment & Plan - Assessment and Plan (Free Text) Plan: Patient seen and examined on rounds, with resident, agree with note with following additions/exceptions: Patient is 87 yo M with PMH of CAD s/p stent, HTN, HLD, colon CA, and cataracts was admitted [place] [facility] [place]. This morning patient was found to be in VTACH and was emergently taken for PCI with MENA placed in the LAD. Currently afebrile, BP stable, comfortable in NAD; denies CP, SOB Cont with ASA, Plavix, Statin, BB BP control FS control IVF ECHO Cardiology follow up GI ppx DVT ppx Monitor in CCU
--- NOTE | 2018-07-18 13:15 | CARDCATH ---
PROCEDURE DATE: 07/18/2018 PROCEDURES: 1. Selective left and right coronary angiography. 2. Left ventriculography. 3. PCI of proximal LAD with drug-eluting stent. 4. Attempted PCI of obtuse marginal branch. 5. Right femoral arteriography. 6. Angio-Seal deployment. HISTORY: This is an 87-year-old man with a known coronary artery disease, status post prior multivessel PCI, admitted yesterday with chest pain. This morning, he developed chest pain with runs of ventricular tachycardia and heart block. There was evidence of ST elevations in the anterolateral leads and emergency catheterization was advised. INDICATION: Acute anterior myocardial infarction. FINDINGS: Hemodynamic aortic pressure was 110/70, left ventricular pressure 110/80. CORONARY ANATOMY: 1. The left mainstem was normal. 2. Left anterior descending artery has a long 90% stenosis which appeared hazy in its proximal segment. The previously placed stent in mid portion of vessel was patent with minimal in-stent stenosis. The diagonal branch had evidence of moderate diffuse proximal disease. The distal LAD was moderate-sized vessel with no obstructive disease noted. 3. Left circumflex artery gave rise to a large obtuse marginal branch with previously placed proximal stent which was occluded. 4. The previously placed stent in the mid left circumflex artery was patent with evidence of mild in-stent stenosis. Distal circumflex artery had mild irregularities. Faint collaterals are seen to large obtuse marginal branch. The right coronary artery was dominant and had evidence of mild diffuse irregularities and no evidence of high-grade stenosis. LEFT VENTRICULOGRAPHY: A hand injection was performed on the left ventricle revealing mild diffuse hypokinesis, with an ejection fraction of 45%. CORONARY INTERVENTION: The patient received 5000 units of intravenous heparin. The ACT was greater than 300 seconds during the procedure. The lesion in the LAD was successfully closed with use of a Boyd wire. Following this, initial placements were performed with a 2.5 x 12 mm balloon. Subsequently, a 3.0 x 18 mm Resolute drug-eluting stent was taken and advanced into the proximal LAD in position with slight overlap of the previously placed stent. This was inflated to 14 atmospheres for 45 seconds. The stent balloon was then advanced into the overlapped segment and it delayed for another 30 seconds to 14 atmospheres. There was 0% residual stenosis following the intervention. ANNALEE grade 3 flow was present at the conclusion of the procedure. The wire was then taken and advanced to the ostium of the occluded obtuse marginal branch. Several attempts were made to cross this, however, this was unsuccessful, as it appeared the occlusion is slightly chronic. The vessel was left untreated. RIGHT FEMORAL ARTERIOGRAPHY: Right femoral arteriogram revealed no evidence of significant disease in the appropriate level of arterial puncture. The puncture site was closed with a deployment of an Angio-Seal device. CONCLUSION: 1. Acute myocardial infraction secondary to proximal LAD disease. 2. Chronically occluded obtuse marginal stent. 3. Patent LAD and mid circumflex stent. 4. Mildly reduced LV systolic function. 5. Successful PCI proximal LAD with drug-eluting stent as described above. RECOMMENDATIONS: Aspirin and Plavix therapy will be continued for one year. Continued risk factor control will be advised. Continued medical therapy will be advised as well. Observation for any further dysrhythmias will be planned. In the short time, his beta-audra will be withheld. Marciano Menard MD MTDD
[2018-07-18 14:50] LABS: TROPONIN I 0.09 ng/mL
--- NOTE | 2018-07-18 16:07 | CARD ---
APPROVED REPORT Date of service: 07/18/2018 EKG Measurement Heart [id number] <Conclusion> Sinus rhythm with 1st degree AV block Otherwise normal ECG
[2018-07-18] MEDS ORDERED: Simethicone 80 mg Chewtab PO ONE (17:29)
--- NOTE | 2018-07-18 23:16 | CARD ---
APPROVED REPORT Date of service: 07/18/2018 EKG Measurement Heart [id number] <Conclusion> Normal sinus rhythm Right bundle branch block Abnormal ECG
[2018-07-19 00:23] LABS: TROPONIN I 0.31 ng/mL
[2018-07-19 08:12] LABS: BASO # 0.02 K/mm3 (0.0-2.0); BASO % 0.2 % (0.0-3.0); EOS # 0.3 (0.0-0.7); EOS % 3.3 % (1.5-5.0); HEMOGLOBIN 12.8 g/dL (14.0-18.0); LYMPH # 1.9 (1.2-3.4); LYMPH % 19.3 % (22.0-35.0); MEAN CORPUSCULAR HEMOGLOBIN 30.5 pg (25.0-35.0); MEAN CORPUSCULAR HGB CONC 33.5 g/dl (31.0-37.0); MEAN PLATELET VOLUME 9.5 fl (7.0-11.0); MONO # 1.1 (0.1-0.6); MONO % 11.2 % (1.0-6.0); RBC 4.2 10^6/uL (3.5-6.1); RED CELL DISTRIBUTION WIDTH 15.2 % (11.5-14.5); WHITE BLOOD COUNT 9.6 10^3/uL (4.5-11.0)
[2018-07-19 08:45] LABS: ALB/GLOB RATIO 1.5 (1.1-1.8); ALBUMIN 3.8 g/dL (3.0-4.8); ALT/SGPT 16 U/L (7-56); AST/SGOT 32 U/L (17-59); BLOOD UREA NITROGEN 23 mg/dL (7-21); CALCIUM 8.9 mg/dL (8.4-10.5); GFR NON-AFRICAN AMERICAN > 60
[2018-07-19] MEDS: SACUBITRIL 24mg/VALSARTAN 26mg tab PO SCH ×2 (10:10→17:11)
--- NOTE | 2018-07-19 10:39 | PN ---
DATE: 07/19/2018 SUBJECTIVE: The patient is seen lying in bed in CCU. He has had no further chest discomfort. He has not gotten out of bed. His cardiac enzymes vi slightly to 0.31 with a negative CK. His current medications include aspirin, Plavix, Entresto 24/26 mg b.i.d., Lipitor 40 mg daily. PHYSICAL EXAMINATION: GENERAL: He is a very elderly man who is comfortable at rest. VITAL SIGNS: His blood pressure is 102/50 with a pulse of 66 and sinus, respirations are 16. He is afebrile. HEENT: No JVD. CHEST: Few scattered rhonchi. HEART: PMI in normal position. Soft tones noted. ABDOMEN: Soft, nontender with normoactive bowel sounds. Right groin clean and dry. EXTREMITIES: Distal pulses intact. No edema. DIAGNOSTICS: Potassium 4.1, BUN and creatinine are 23 and 0.8. White count 9.6, hemoglobin and hematocrit 12.8 and 38.2 with platelet count 142,000. Electrocardiogram revealed sinus rhythm with an incomplete right bundle-branch block and first-degree AV block. No further heart block has been noted, occasional PVCs have been noted. IMPRESSION: 1. Status post anterior myocardial fraction treated with emergent percutaneous coronary intervention of left anterior descending artery yesterday. Clinically stable. 2. Ventricular tachycardia, ischemic, clinically resolved. 3. Known coronary disease status post prior multivessel percutaneous coronary intervention. 4. Transient heart block with no recurrence since percutaneous coronary intervention. RECOMMENDATIONS: His current medications will be continued for now. Low-dose beta-audra will be resumed and he will continued to be observed. He will be transferred to telemetry and ambulate today. Assuming that he remains stable, discharge home tomorrow would be reasonable. We will follow and make further recommendations as appropriate. Marciano Menard MD MTDD
--- NOTE | 2018-07-19 11:35 | PN ---
DATE: 07/19/2018 SUBJECTIVE: He is in the intensive care unit. He is status post cardiac cath and stent placement. He is doing much better today. He is feeling much better today. He has not gotten out of bed in the past 2 or 3 days. I would like to have him walk. Also, the race relations professor wants to watch him another 24 hours because he had an irregular rhythm and wanted to make sure that passes. MEDICATIONS: He is on Colace, Ecotrin, Entresto, Lipitor, Lopressor, Nitrostat and Plavix. OBJECTIVE: VITAL SIGNS: He has a 98 temp, 73 pulse, 102/40 blood pressure, 24 respiratory rate, 95% O2 sat. HEENT: Head is atraumatic, normocephalic. Much better color today than yesterday on his face. HEART: Regular rate. LUNGS: Decreased breath sounds, but clear. ABDOMEN: Soft. EXTREMITIES: No edema. He looks much stronger than the other day. LABORATORY DATA: He has had some blood tests done. He has 9.6 white count, 12.8 hemoglobin, 38.2 hematocrit with 142 platelets. He has 136 sodium, potassium 4.1, BUN 23, creatinine 0.8, GFR is greater than 60, sugar is 107, calcium is 8.9, phosphorus is 3.6, magnesium 2.1, total bili is 1, AST is 32, ALT is 16, alk phos is 61. His troponins were 0.02, less than 0.01, but did bounce to 0.31 after the procedure. Total protein 6.4. Urine was clean. ASSESSMENT AND PLAN: He is status post cardiac catheterization and stent placement x2. Hopefully, he will do very well. We will watch him overnight to make sure he is walking well, watch his rhythm. He had coronary artery disease, status post stent. He had a little bit of ventricular tachycardia. I will watch him closely for 24 more hours. Hopefully, he will do well, normal rhythm without any issues and he will be discharged tomorrow is my goal. Hopefully, he walks well today also with physical therapy. Ozzy Yao DO [facility] # [id number]
--- NOTE | 2018-07-19 12:19 | CP.PCM.PCO ---
Physician Communication Note - Physician Communication Note Physician Communication Note: PT eval pending, cardiac monitoring x 24h as per cardiology, possible dc am
--- NOTE | 2018-07-19 21:40 | CARD ---
APPROVED REPORT Date of service: 07/19/2018 EKG Measurement Heart [id number] <Conclusion> Sinus tachycardia with occasional premature ventricular complexes Incomplete right bundle branch block Borderline ECG
[2018-07-20 06:04] VITALS: RESP 18; TEMP 98.3; O2SAT 96
[2018-07-20 06:28] LABS: HEMOGLOBIN 12.7 g/dL (14.0-18.0); MEAN CELL VOLUME 91.2 fl (80.0-105.0); MEAN CORPUSCULAR HEMOGLOBIN 30.3 pg (25.0-35.0); MEAN CORPUSCULAR HGB CONC 33.2 g/dl (31.0-37.0); RBC 4.19 10^6/uL (3.5-6.1); RED CELL DISTRIBUTION WIDTH 15.5 % (11.5-14.5); WHITE BLOOD COUNT 8.8 10^3/uL (4.5-11.0)
[2018-07-20 06:39] LABS: ALB/GLOB RATIO 1.3 (1.1-1.8); ALBUMIN 3.5 g/dL (3.0-4.8); ALT/SGPT 13 U/L (7-56); AST/SGOT 30 U/L (17-59); BLOOD UREA NITROGEN 21 mg/dL (7-21); GFR NON-AFRICAN AMERICAN > 60
--- NOTE | 2018-07-20 09:29 | PN ---
DATE: 07/20/2018 SUBJECTIVE: Today, the patient was seen lying in bed, sitting in chair in Telemetry. He is comfortable at the present time. He denies any chest pain or dyspnea. CURRENT MEDICATIONS: Include Ecotrin, Entresto 24/26 mg b.i.d., Lipitor 40 mg daily, metoprolol 25 mg daily and Plavix 75 mg daily. OBJECTIVE: GENERAL: He is a very elderly man who appears comfortable at the present time. VITAL SIGNS: Blood pressure is 110/74, pulse of 80 and sinus, respirations of 16, he is afebrile. NECK: No JVD. CHEST: Few scattered rhonchi. HEART: Occasional PVCs are noted. PMI normal position. No pathological gallops noted. ABDOMEN: Soft and nontender with normoactive bowel sounds. EXTREMITIES: No edema. DIAGNOSTIC DATA: Potassium 4.0, BUN and creatinine 21 and 0.9. White count 8.8, hemoglobin and hematocrit 12.7 and 38.2 with platelet count 145,000. IMPRESSION: 1. Recent anterior wall myocardial infraction complicated by ventricular tachycardia, successfully treated with a percutaneous coronary intervention of left anterior descending, appears clinically stable. No evidence of significant infarct. 2. Ischemic ventricular tachycardia, clinically resolved. 3. Known coronary disease, status post multivessel percutaneous coronary intervention. 4. Transient heart block, subsequently stable. RECOMMENDATIONS: His current medications will be continued for now. From a cardiac standpoint, he appears stable for discharge home. Close outpatient followup will be arranged. Continued risk factor control is advised. Marciano Menard MD
[2018-07-20] MEDS: SACUBITRIL 24mg/VALSARTAN 26mg tab PO SCH (09:57)
[2018-07-20 10:00] VITALS: BP 115/78
--- NOTE | 2018-07-20 10:40 | CARD ---
APPROVED REPORT Date of service: 07/18/2018 <Conclusion> Wide complex, rapid irregular rhythm. Probably atrial fibrillation witha rapid ventricular response. Other beats appear to be clearly ventricular in origin RBBB Marked STT abnormalities Consider acute process. electrolyte abnormalities CCR. Serial tracings recommended Compared to previous tracing earlier today the above changes are new
--- NOTE | 2018-07-20 11:47 | DS ---
HISTORY OF PRESENT ILLNESS: He did well last night. He slept well. He is eating well. He is walking well. PHYSICAL EXAMINATION: VITAL SIGNS: He has a 98.3 temperature, 82 pulse, 109/74 blood pressure, 18 respiratory rate, 96% O2 sat on room air. HEENT: Head is atraumatic and normocephalic. HEART: Regular rate. LUNGS: Decreased breath sounds, but clear. ABDOMEN: Soft. EXTREMITIES: No edema. MEDICATIONS: He is on Colace, Ecotrin, Entresto, Lipitor, Lopressor, Nitrostat and Plavix. LABORATORY DATA: He has a 8.8 white count, 12.7 hemoglobin, 30.2 hematocrit, 145 platelets. He has sodium of 138, potassium is 4, BUN is 21, creatinine 0.9. GFR is greater than 60. Sugar is 109, calcium is 9. Total bili is 0.7, AST is 30, ALT is 13, alk phos is 59. His troponin is coming down from 0.31 down to 0.2. Total protein 6.3. ASSESSMENT AND PLAN: He had a chest pain, ventricular tachycardia, coronary artery disease with stents placement. Followup on the outpatient. Ozzy Yao DO
[2018-07-20 12:52] VITALS: PULSE 103
== END 2018-07-20 13:43 | disposition home or self-care (01) | DRG 247 ==
LOC: ED 08:05 → ERH 09:38 → 2RNO 22:47 → CCU 07-18 09:37 → 2RNO 07-19 14:10
PROVIDERS: ADMIT Family Medicine; ATTEND Family Medicine
PROC: 027034Z Dilation of Coronary Artery, One Artery with Drug-eluting Intraluminal Device, Percutaneous Approach (ICD-10-PCS; principal; 2018-07-18)
PROC: 4A023N7 Measurement of Cardiac Sampling and Pressure, Left Heart, Percutaneous Approach (ICD-10-PCS; 2018-07-18)
PROC: B211YZZ Fluoroscopy of Multiple Coronary Arteries using Other Contrast (ICD-10-PCS; 2018-07-18)
PROC: B215YZZ Fluoroscopy of Left Heart using Other Contrast (ICD-10-PCS; 2018-07-18)
PROC: B41FYZZ Fluoroscopy of Right Lower Extremity Arteries using Other Contrast (ICD-10-PCS; 2018-07-18)
DX: I21.09 ST elevation (STEMI) myocardial infarction involving other coronary artery of anterior wall (principal); I47.2 Ventricular tachycardia; I25.118 Atherosclerotic heart disease of native coronary artery with other forms of angina pectoris; I10 Essential (primary) hypertension; N40.0 Benign prostatic hyperplasia without lower urinary tract symptoms; K21.9 Gastro-esophageal reflux disease without esophagitis; I45.10 Unspecified right bundle-branch block; E78.00 Pure hypercholesterolemia, unspecified; M17.11 Unilateral primary osteoarthritis, right knee; I25.2 Old myocardial infarction; Z85.038 Personal history of other malignant neoplasm of large intestine; Z90.49 Acquired absence of other specified parts of digestive tract; Z85.828 Personal history of other malignant neoplasm of skin

== ENCOUNTER 2018-08-03 11:19 | Outpatient (CLI) | payer MEDICARE | END 2018-08-03 11:20 | disposition home or self-care (01) | LOC: RAD 11:19 ==